=== PATIENT | female | born 1970 | race Caucasian/White ===

== ENCOUNTER 2019-02-10 20:10 | Emergency (ER) | payer OTHER ==
[~2019-02-10] VITALS: Ht 165.1 cm; Wt 82.1 kg
[2019-02-10 20:40] VITALS: Ht 165.1 cm; Wt 82.1 kg
[2019-02-10 21:23] VITALS: BP 142/92
== END 2019-02-10 21:23 | disposition home or self-care (01) ==
LOC: ED 20:10
DX: H16.9 Unspecified keratitis (principal); H10.89 Other conjunctivitis; Z98.890 Other specified postprocedural states